=== PATIENT | male | born 2000 | race Caucasian/White ===

== ENCOUNTER 2020-08-05 12:12 | Emergency (ER) | payer BC ==
[~2020-08-05] VITALS: Ht 180.3 cm; Wt 72.7 kg
[2020-08-05] MEDS ORDERED: PROAIR HFA0.09 MG/AC IH (12:57)
[2020-08-05 13:41] LABS: STREP SCREEN NEGATIVE
[2020-08-05 14:18] VITALS: BP 105/70; PULSE 87; TEMP 98.1
== END 2020-08-05 14:17 | disposition home or self-care (01) ==
LOC: COL.ER 12:12
PROVIDERS: Nurse Practitioner Primary Care
DX: Z20.828 Contact with and (suspected) exposure to other viral communicable diseases (principal); R50.9 Fever, unspecified; R51.9 Headache, unspecified; J02.9 Acute pharyngitis, unspecified; R05 Cough; J45.909 Unspecified asthma, uncomplicated

== ENCOUNTER 2020-12-13 04:32 | Emergency (ER) | payer BC ==
[~2020-12-13] VITALS: Ht 180.3 cm; Wt 72.7 kg
[~2020-12-13 04:32] MED LIST: PROAIR HFA0.09 MG/AC IH
[2020-12-13 05:37] LABS: CALCIUM 9.9 mg/dL (8.4-10.2); CREATININE, serum 1.04 (0.66-1.25); POTASSIUM 3.7 mmol/L (3.4-5.0)
[2020-12-13] MEDS ORDERED: ZOFRAN ODT4 MG PO (05:57)
[2020-12-13] MEDS ORDERED: TYLENOL 325MG325 MG PO (05:57)
[2020-12-13 06:36] VITALS: BP 105/59; PULSE 93; TEMP 97.8
== END 2020-12-13 06:36 | disposition home or self-care (01) ==
LOC: COL.ER 04:32
PROVIDERS: Emergency Medicine
DX: Z20.822 Contact with and (suspected) exposure to COVID-19 (principal); J45.909 Unspecified asthma, uncomplicated; Z79.51 Long term (current) use of inhaled steroids
CPT/HCPCS: J1885; J2060; J2405; J7030

== ENCOUNTER 2021-07-11 23:41 | Emergency (ER) | payer BC ==
[~2021-07-11] VITALS: Ht 180.3 cm; Wt 77.3 kg
[~2021-07-11 23:41] MED LIST changes: +TYLENOL 325MG325 MG PO; +ZOFRAN ODT4 MG PO
[2021-07-11 23:48] VITALS: TEMP 98.3
[2021-07-12 00:20] LABS: STREP SCREEN POSITIVE
[2021-07-12] MEDS ORDERED: AMOXICILLIN 50500 MG PO (00:23)
[2021-07-12 00:35] VITALS: BP 114/70; PULSE 76
== END 2021-07-12 00:35 | disposition home or self-care (01) ==
LOC: COL.ER 23:41
PROVIDERS: Nurse Practitioner
DX: J02.0 Streptococcal pharyngitis (principal); J45.909 Unspecified asthma, uncomplicated; Z79.899 Other long term (current) drug therapy

== ENCOUNTER 2021-07-25 13:05 | Emergency (ER) | payer BC ==
[~2021-07-25] VITALS: Ht 180.3 cm; Wt 77.3 kg
[~2021-07-25 13:05] MED LIST changes: +AMOXICILLIN 50500 MG PO
[2021-07-25 13:14] VITALS: BP 100/66; TEMP 97.9
[2021-07-25 14:25] VITALS: PULSE 62
== END 2021-07-25 14:25 | disposition home or self-care (01) ==
LOC: COL.ER 13:05
DX: S89.92XA Unspecified injury of left lower leg, initial encounter (principal); W19.XXXA Unspecified fall, initial encounter; Y93.23 Activity, snow (alpine) (downhill) skiing, snowboarding, sledding, tobogganing and snow tubing

== ENCOUNTER 2024-07-24 11:46 | Emergency (ER) | payer BC ==
[~2024-07-24] VITALS: Ht 180.3 cm; Wt 97.7 kg
[2024-07-24 11:57] VITALS: TEMP 97.7
[2024-07-24] MEDS ORDERED: NS 1,000 ML IV ONE (12:45)
[2024-07-24] MEDS ORDERED: Hyoscyamine 0.125 MG Sublingual TAB SL ONE (12:45)
[2024-07-24] MEDS ORDERED: Ondansetron 4 MG/2 ML VIAL IV ONE (12:45)
[2024-07-24 13:14] LABS: BASO # 0.1 K/mm3 (0.0-0.2); BASO % 0.6 % (0.0-2.0); EOS # 0.8 K/mm3 (0.0-0.7); EOS % 4.6 % (0.0-4.0); GRAN % 77.9 % (42.2-75.2); HEMATOCRIT 49.5 % (42.0-52.0); HEMOGLOBIN 17.2 g/dl (13.5-18.0); LYMPH # 1.8 K/mm3 (1.2-3.4); LYMPH % 10.6 % (20.0-51.0); MEAN CELL VOLUME 89 fl (80.0-100.0); MEAN CORPUSCULAR HEMOGLOBIN 31 pg (27-31); MEAN CORPUSCULAR HGB CONC 35 g/dl (33.0-37.0); MEAN PLATELET VOLUME 9.2 fl (7.4-10.4); MONO # 0.9 K/mm3 (0.1-0.6); MONO % 5.6 % (1.7-9.3); PLATELET COUNT 355 K/mm3 (130-400); RED BLOOD COUNT 5.56 M/mm3 (4.20-5.60)
[2024-07-24 13:32] LABS: ALBUMIN 4.9 g/dL (3.5-5.0); BILIRUBIN,TOTAL 0.6 mg/dL (0.2-1.2); CALCIUM 10.5 mg/dL (8.4-10.2); CREATININE, serum 1.26 mg/dL (0.72-1.25); POTASSIUM 4.3 mEq/L (3.5-4.5); TOTAL PROTEIN 8.5 g/dl (6.2-8.1)
[2024-07-24] MEDS ORDERED: LEVSIN 0.10.125 MG/T PO (14:33)
[2024-07-24] MEDS ORDERED: ZOFRAN ODT4 MG PO (14:33)
[2024-07-24 14:37] VITALS: BP 122/79; PULSE 76
== END 2024-07-24 14:44 | disposition home or self-care (01) ==
LOC: COL.ER 11:46
PROVIDERS: Emergency Medicine
DX: R11.2 Nausea with vomiting, unspecified (principal); R19.7 Diarrhea, unspecified; D72.829 Elevated white blood cell count, unspecified
CPT/HCPCS: J2405; J7030